=== PATIENT | male | born 1970 ===

== ENCOUNTER 2017-06-03 11:51 | Emergency (ER) | payer BC ==
--- NOTE | 2017-06-03 13:33 | UC ---
Skin Complaint HPI - HPI Summary HPI Summary: PT IS HERE FROM [place] FOR WORK. YESTERDAY NOTICED A TENDER, RED, RAISED AREA ON LEFT INNER THIGH. THINKS IT MIGHT HAVE STARTED A BUG BITE. TODAY IT DRAINED SOME BLOODY FLUID AND NOW FEELS AND LOOKS BETTER. NO FEVER. NO ABREU, JOINT PAIN, MUSCLE ACHES. ALSO IS CONCERNED ABOUT A LUMP ON HIS RIGHT THIGH. IT HAS BEEN THERE FOR 3-4 MONTHS. NOT GROWING. NOT PAINFUL. - History of Current Complaint Chief Complaint: UCSkin Time Seen by Provider: 06/03/17 12:50 Stated Complaint: SKIN ISSUE Hx Obtained From: Patient Onset/Duration: Sudden Onset, Lasting Days, Still Present Timing: Constant Onset Severity: Moderate Current Severity: Mild Pain Intensity: 2 Pain Scale Used: 0-10 Numeric Location: Discrete - LEFT INNER THIGH Character: Redness, Raised, Painful Aggravating: Touch Alleviating: Other - BETTER AFTER SPONTANEOUS DRAINAGE Associated Signs & Symptoms: Positive: Drainage, Tenderness. Negative: Nausea, Fever, Wheezing, Throat Tightening, Bruising, Red Streaks - Allergy/Home Medications Allergies/Adverse Reactions: Allergies Allergy/AdvReac Type Severity Reaction Status Date / Time No Known Allergies Allergy Verified 06/03/17 11:57 Review of Systems Constitutional: Negative Skin: Other - ERYTHEMA, ABCESS Respiratory: Negative Cardiovascular: Negative Gastrointestinal: Negative All Other Systems Reviewed And Are Negative: Yes PMH/Surg Hx/FS Hx/Imm Hx Previously Healthy: Yes - Surgical History Surgical History: Yes Surgery Procedure, Year, and Place: hernia appy - Family History Known Family History: Negative: Hypertension - Social History Alcohol Use: Daily Substance Use Type: None Smoking Status (MU): Never Smoked Tobacco Physical Exam Triage Information Reviewed: Yes Appearance: Well-Appearing, No Pain Distress, Well-Nourished Vital Signs: Initial Vital Signs Temp 98 F 06/03/17 11:57 Pulse 93 06/03/17 11:57 Resp 15 06/03/17 11:57 BP 151/92 06/03/17 11:57 Pulse Ox 100 06/03/17 11:57 Vital Signs Reviewed: Yes Eyes: Positive: Conjunctiva Clear ENT: Positive: Hearing grossly normal Neck: Positive: Supple Respiratory: Positive: No respiratory distress, No accessory muscle use Cardiovascular: Positive: Pulses Normal Abdomen Description: Positive: Soft Musculoskeletal: Positive: No Edema, Other: - 2CM NONTENDER MASS RIGHT ANTERIOR THIGH Neurological: Positive: Alert Psychological: Positive: Age Appropriate Behavior Skin: Positive: Other - 3CM X 1.5CM ERYTHEMATOUS, MILDLY TENDER RAISED AREA WITH CENTRAL OPENING. NO ACTIVE DRAINING Course/Dx - Diagnoses Provider Diagnoses: 1. CELLULITIS/ABSCESS LEFT INNER THIGH. 2. SOFT TISSUE MASS RIGHT ANTERIOR THIGH Discharge - Discharge Plan Condition: Stable Disposition: HOME Prescriptions: Cephalexin CAP* [Keflex 500 CAP*] 1,000 mg PO BID #28 cap Patient Education Materials: Cellulitis (ED), Abscess (ED), Soft Tissue Mass ( ED) Referrals: No Primary Care Phys,NOPCP [Primary Care Provider] - Additional Instructions: YOUR SKIN INFECTION MAY HAVE STARTED FROM A BUG BITE. IT SEEMS TO BE IMPROVING ON ITS OWN AFTER SPONTANEOUSLY DRAINING AT HOME. WARM/HOT COMPRESSES CAN HELP. WILL PRESCRIBE ANTIBIOTICS. IF YOU FEEL YOUR INFECTION IS NOT CONTINUING TO IMPROVE GO AHEAD AND FILL THE PRESCRIPTION AND TAKE IT FOR THE FULL COURSE. THE SOFT TISSUE MASS IN YOUR RIGHT THIGH MAY BE A LIPOMA - A BENIGN COLLECTION OF FAT CELLS. FOLLOW-UP WITH YOUR PCP BACK IN [place] WHEN YOU GO HOME NEXT MONTH FOR FURTHER EVALUATION.
== END 2017-06-03 13:19 | disposition home or self-care (01) ==
LOC: UCEAST 11:51
DX: L03.116 Cellulitis of left lower limb (principal); L02.416 Cutaneous abscess of left lower limb; R22.41 Localized swelling, mass and lump, right lower limb
CPT/HCPCS: 99202; G0463